=== PATIENT | female | born 1985 | race Hispanic/Latino ===

== ENCOUNTER 2020-11-10 13:05 | Emergency (ER) | payer SELFPAY ==
[~2020-11-10] VITALS: Ht 149.9 cm; Wt 74.8 kg
[2020-11-10] MEDS ORDERED: DIAZEPAM 5 MG TAB PO ONE (13:15)
[2020-11-10] MEDS ORDERED: DEXAMETHASONE 4 MG TAB PO SCH (13:15)
[2020-11-10] MEDS ORDERED: ALBUTEROL0.63 MG/3 NEB (14:18)
[2020-11-10] MEDS ORDERED: VENTOLIN HFA18 GM INH (14:18)
== END 2020-11-10 14:31 | disposition home or self-care (01) ==
LOC: ER 13:47
DX: R06.00 Dyspnea, unspecified (principal); J04.0 Acute laryngitis; R05 Cough; F41.9 Anxiety disorder, unspecified; J45.909 Unspecified asthma, uncomplicated
CPT/HCPCS: 70360; 71045; 99284; J8540

== ENCOUNTER 2021-08-17 11:34 | Emergency (ER) | payer SELFPAY ==
[~2021-08-17] VITALS: Ht 149.9 cm; Wt 74.8 kg
[~2021-08-17 11:34] MED LIST: ALBUTEROL0.63 MG/3 NEB; VENTOLIN HFA18 GM INH
[2021-08-17] MEDS ORDERED: ALBUTEROL SULFATE HFA 8GM INHALATION AEROSOL INH PRN (13:30)
[2021-08-17] MEDS ORDERED: ACETAMINOPHEN 325 MG TAB PO ONE (13:30)
[2021-08-17] MEDS ORDERED: SOTROVIMAB 500 MG in SODIUM CHLORIDE 0.9% 100 ML IV ONE (14:30)
[2021-08-17 15:30] VITALS: BP 133/78
== END 2021-08-17 15:37 | disposition home or self-care (01) ==
LOC: ER 11:50
DX: U07.1 COVID-19 (principal)
CPT/HCPCS: 71045; 99283; J7050; U0002